=== PATIENT | male | born 1975 | race Caucasian/White ===

== ENCOUNTER 2022-05-16 14:05 | Outpatient (REF) | payer MEDICAID, SELFPAY ==
--- NOTE | ~2022-05-16 | XR_ITS ---
EXAMINATION: XR HIP, LEFT CLINICAL INFORMATION: Pain left hip COMPARISON: None TECHNIQUE: AP and frog-lateral projections of the left hip. FINDINGS: No fracture, dislocation, or destructive process. Normal bony mineralization. There are osteoarthritic changes left hip with narrowing greater superior joint and mild subchondral sclerosis. There is spurring from the acetabular rim and base of the femoral head. No erosive change. There is some mineralization in region of the posterior superior acetabulum. The left SI joint shows undulating margin superior to mid aspect suggesting sacroiliitis. There are degenerative changes lower lumbar spine with osteophytes and probable disc narrowing lumbosacral junction. Pubis unremarkable. XR/XR hip LT min 2V IMPRESSION: -Osteoarthritis left hip. -Suspect left sacroiliitis. -Degenerative changes lower lumbar spine.
== END 2022-05-16 14:06 | disposition home or self-care (01) ==
LOC: HO.XRAY 14:05
PROVIDERS: PCP Internal Medicine; Visit Provider Internal Medicine
DX: M25.552 Pain in left hip (principal)
CPT/HCPCS: 73502